=== PATIENT | male | born 1940 | race Caucasian/White ===

== ENCOUNTER → 2018-08-23 10:00 | Outpatient (CLI) | payer MEDICARE, SELFPAY ==
--- NOTE | 2018-08-23 10:00 | PROSBIL_PTH ---
PATIENT: IAM PABLO LOC: [facility] U#:[id number] AGE/SX: 84/M ROOM: RE08/23/[address]: Dr. Anil Mcwilliams MD : 1940 BED: DIS: SPEC #: [id number] RECD: 08/23/18 15:48 STATUS: IGLESIA ARIEL #: [id number] KIRIT: 08/23/18 10:[address]: Anil Mcwilliams DEPT: SURGICAL PATHOLOGY RECD BY: Byron Addison Tissues: A - PROSTATE RIGHT B - PROSTATE RIGHT C - PROSTATE RIGHT D - PROSTATE LEFT E - PROSTATE LEFT F - PROSTATE LEFT Procedures: PROSTATE BX HEADER OPERATION: Prostate biopsy PRE-OP DIAGNOSIS: Elevated PSA TISSUE SUBMITTED: A - Right apex, B - Right mid, C - Right base, D - Left apex, E - Left mid, F - Left base MICROSCOPIC DIAGNOSIS A. Right prostate, apex, core biopsy: Prostatic tissue, negative for malignancy. Focal mild chronic inflammation. B. Right prostate, mid, core biopsy: Prostatic tissue, negative for malignancy. C. Right prostate, base, core biopsy: Prostatic tissue, negative for malignancy. D. Left prostate, apex, core biopsy: Prostatic stromal tissue, negative for malignancy. E. Left prostate, mid, core biopsy: Prostatic tissue, negative for malignancy. Focal mild chronic inflammation. F. Left prostate, base, core biopsy: Prostatic tissue, negative for malignancy. Focal mild chronic inflammation. SJ:nakita 08/25/18 MICROSCOPIC DESCRIPTION Slides are reviewed. GROSS DESCRIPTION A - Received is one container designated prostate, right apex. The specimen consists of two elongated fragments of light trevizo-white soft tissue each measuring 1 cm in length and 0.1 cm in diameter. The specimen is totally submitted in one cassette. B - Received is one container designated prostate, right mid. The specimen consists of two elongated fragments of light trevizo-white soft tissue measuring 1 and 1.5 cm in length and 0.1 cm in diameter. The specimen is totally submitted in one cassette. C - Received is one container designated prostate, right base. The specimen consists of two elongated fragments of light trevizo-white soft tissue measuring 1.5 cm in length and 0.1 cm in diameter. The specimen is totally submitted in one cassette. D - Received is one container designated prostate, left apex. The specimen consists of one elongated fragment of light trevizo-white soft tissue measuring 0.5 cm in length and 0.1 cm in diameter. The specimen is totally submitted in one cassette. E - Received is one container designated prostate, left mid. The specimen consists of two elongated fragments of light trevizo-white soft tissue measuring 0.5 and 1 cm in length and 0.1 cm in diameter. The specimen is totally submitted in one cassette. F - Received is one container designated prostate, left base. The specimen consists of two elongated fragments of light trevizo-white soft tissue each measuring 1.5 cm in length and 0.1 cm in diameter. The specimen is totally submitted in one cassette. / SJ:rg 08/24/18 TC:3 CPT: G0146
== END ==
PROVIDERS: Referring Provider Urology; Visit Provider Urology
DX: N41.9 Inflammatory disease of prostate, unspecified (principal)
CPT/HCPCS: 88305; G0416

== ENCOUNTER → 2019-03-21 | Outpatient (CLI) | payer MEDICARE, SELFPAY | END | disposition home or self-care (01) | PROVIDERS: Referring Provider Nurse Practitioner Adult Health; Visit Provider Nurse Practitioner Adult Health | DX: R97.20 Elevated prostate specific antigen [PSA] (principal) | CPT/HCPCS: 36415; 84153 ==

== ENCOUNTER 2022-10-01 15:00 | Observation (INO) | payer MEDICARE, SELFPAY ==
[2022-10-01] VITALS (11 sets, daily range): BP systolic 138–168; BP diastolic 67–99; PULSE 65–82; RESP 16–18; TEMP 36.3–37.1; O2SAT 94–98; BMI 16.9; BMI 16.8
[2022-10-01] MEDS: Lactated Ringers 1,000 ML 15 ML IV (11:51)
--- NOTE | 2022-10-01 13:15 | BLB_PTH ---
PATIENT: IAM PABLO LOC: MS3 U#:[id number] AGE/SX: 82/M ROOM: LA321 RE10/01/[address]: Dr. Anil Mcwilliams MD : 1940 BED: 1 DIS: 10/02/2022 SPEC #: [id number] RECD: 10/01/22 16:36 STATUS: IGLESIA GEORGE #: [id number] KIRIT: 10/01/22 13:[address]: Anil Mcwilliams DEPT: SURGICAL PATHOLOGY RECD BY: Rafi Barnes ENTERED: 10/02/22 10:25 SP TYPE: TURB OTHR DR: Dr. 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 Fragments of stone (gross only). See cancer summary in the comment section. SJ:nakita 10/03/2022 COMMENT BLADDER CANCER (TUR) SUMMARY Procedure: Transurethral resection of bladder tumor (TURBT) Tumor site: Not specified Histologic type: Papillary urothelial carcinoma, invasive with extensive glandular differentiation. Associated epithelial lesions: None identified Histologic grade for urothelial carcinoma: High-grade (3/3) Tumor configuration: Papillary and invasive Muscularis propria presence: Muscularis propria (detrusor muscle) is present and involved by tumor. Lymphvascular invasion: Not identified Tumor extension: Tumor invades the muscularis propria (detrusor muscle). Additional pathologic findings: Chronic inflammation. - Bladder stones (gross only). The above summary is in compliance with [employer] [place] [employer] (CAP) Cancer Protocols Checklist and [place] [employer] Committee on Cancer (AJCC), Staging Manual, 8th Ed. MICROSCOPIC DESCRIPTION Slides are reviewed. GROSS DESCRIPTION Received in fixative is one container labeled with the patient's name and designated bladder tumor and bladder stones. The specimen consists of multiple irregular fragments of trevizo-brown soft tissue that in aggregate measure 5 x 3 x 0.3 cm. Also present in the container are multiple fragments of brown irregular stones measuring in aggregate 2.5 x 2 x 0.5 cm. The entire soft tissue is submitted in two cassettes. The stones are for gross identification only. / SJ:nakita 10/02/2022 TC:0 CPT: 54688
[2022-10-01] MEDS: Cefazolin 2 GM in 0.9% Normal Saline 100 ML IV (13:42)
--- NOTE | 2022-10-01 13:51 | PCM.HP.STD ---
HPI - General General Date of Service: 10/01/22 Chief Complaint: Bladder tumor and bladder stones HPI Narrative IAM PABLO, is a 82 M who presents removal of a bladder tumor and removal bladder stones PFSH Medical History Anxiety Bladder disease Cancer Depression Loss of hearing Non-smoker Prostate disease Wears dentures Wears glasses Home Medications lorazepam 1 mg tablet 1 mg PO DAILY 09/30/22 [History Last Taken Unknown] sertraline 50 mg tablet 50 mg PO DAILY 09/30/22 [History Last Taken Unknown] finasteride 5 mg tablet (Proscar) 5 mg PO DAILY #30 tabs 10/01/22 [Rx Last Taken Unknown] tamsulosin 0.4 mg capsule (Flomax) 0.4 mg PO QHS #30 caps 10/01/22 [Rx Last Taken Unknown] Allergy/AdvReac Type Severity Reaction Status Date / Time No Known Allergies Allergy Verified 10/01/22 11:47 Surgical History No history of previous surgery Social History Smoking Status: Never smoker Vital Signs Vital Signs Vital Signs: 10/01/22 11:29 10/01/22 11:48 10/01/22 11:48 Temperature 98.8 F Temperature Source Temporal Pulse Rate 68 Respiratory Rate 16 Respiratory Pattern Normal Normal Blood Pressure 146/70 H Blood Pressure Mean 95 Blood Pressure Source Monitor Blood Pressure Position Semi-Fowlers Blood Pressure Location Right Arm Pulse Ox 97 Oxygen Delivery Method Room Air Weight Weight: 52 kg Body Mass Index (BMI) 16.9
--- NOTE | 2022-10-01 13:52 | DCINST_ITS ---
Discharge Instructions Diet Discharge Diet: No restrictions, Light diet - advance as tolerated and Soft diet Activity Discharge Activity: Return to Normal Activity Dressing / Incision Call your doctor if your incision/area has: Sudden Increased Bleeding Follow Up Care Please Follow Up With: Anil Mcwilliams MD When: call for appt. Test Results: Test results from this visit will be discussed in further detail at your follow- up appointment, if applicable. Discharge Plan Admission Primary Reason for Your Visit: resection of bladder tumor and remove stones Attending Provider: Anil Mcwilliams Primary Care Provider: Zach Barnhart Discharge Orders/Prescriptions Prescriptions: New tamsulosin [Flomax] 0.4 mg capsule 0.4 mg PO QHS Qty: 30 5RF finasteride [Proscar] 5 mg tablet 5 mg PO DAILY Qty: 30 5RF Continued lorazepam 1 mg tablet 1 mg PO DAILY Label Comments: TAKE 1/2 TO 1 TABLET BY MOUTH AT BEDTIME NEEDED FOR SLEEP sertraline 50 mg tablet 50 mg PO DAILY Label Comments: TAKE ONE TABLET BY MOUTH TWICE DAILY Referrals / Follow Up: Anil Mcwilliams MD [Med Staff - Active Staff] - Zach Barnhart MD [Primary Care Provider] - Disposition Disposition (needs filled in before D/C Order can be placed): Home, Self Care
[2022-10-01] MEDS: Lactated Ringers 1,000 ML 75 ML IV ×2 (13:55→15:14)
--- NOTE | 2022-10-01 14:56 | OP.PCM_ITS ---
Report of Operation Date of Procedure: 10/01/22 Pre-Operative Diagnosis: Bladder cancer and large bladder stones very large pro state Post-Operative Diagnosis: Same Surgery/Procedure Performed:: Transurethral resection of bladder cancer large resection involving the posterior wall the bladder and cystolitholapaxy of large bladder stones Description of Surgical Findings:: This is an 82-year-old male who I saw in the office for recurrent gross hematuria on cystoscopy was found to have 3 major findings 1 is as a very large prostate measuring 300 g in size extremely large. At this point I recommended no surgical intervention for such a large prostate it would be quite difficult to intervene and would recommend medical therapy since he is not taking finasteride or Flomax to start off the shrink the prostate. I did prescribe finasteride but he still has not taken it in his family says he wants to try something natural quotation [place]. Again I recommended he take finasteride and Flomax to help with his very large prostate but today we will take him to surgery he has multiple tumors in the posterior aspect of the bladder and around the bladder neck and also has multiple large stones at work and a removed from the bladder as well I told him I would not do surgery in his prostate until we optimize him medically because of such a large prostate would be very difficult to complete resection of any meaningful fashion. 82-year-old male taken back to the operating room at a smooth induction of general anesthesia he was placed in dorsolithotomy position. The penis and testicles were prepped and draped in usual sterile fashion. Went to the bladder with a 26 [place]ian continuous-flow resectoscope the entire length of the urethra from the penis to the sphincter was intact and no strictures or abnormalities the sphincter was intact he did have a very large prostate significant large bilateral lobes with obstruction and a small median lobe inside the bladder there was multiple tumors papillary tumors in the posterior aspect of the bladder covered a very large area I switched over the resectoscope and resected this first there is also some tumors in the bladder neck at the be resected these were also resected. I then used the laser thousand laser and there is multiple stones a large stones in the base of the bladder and these were all lasered little tiny pieces and flushed out I then had to cauterize extensively around the bladder neck and around the posterior bladder still some slow oozing and constant oozing especially from the bladder neck so we placed a 20 Lithuanian catheter and will keep in the hospital for observation because of the risk of bleeding. Surgeon: Anil Mcwilliams Type of Anesthesia: General Drains: 20 fr hutchins Admit VTE Documentation VTE Present on Admission: No VTE Mechan Device Prophylaxis: SCD's
--- NOTE | 2022-10-01 19:28 | SUR.PHASEII ---
catheter flushed with 50cc ns. several small clots evacuated.
[2022-10-01] MEDS: 0.9% Normal Saline 1,000 ML 125 ML IV (20:29)
[2022-10-01] MEDS: Ciprofloxacin 400 MG/200 ML BAG 200 MG IV (21:34)
[2022-10-01] MEDS: Docusate Sodium 100 MG Capsule 200 MG PO (21:34)
[2022-10-02 03:54] VITALS: BP 125/77; PULSE 66; RESP 16; TEMP 36.8; O2SAT 96
[2022-10-02] MEDS: 0.9% Normal Saline 1,000 ML 125 ML IV (04:25)
[2022-10-02 08:44] VITALS: BP 140/86; PULSE 66; RESP 16; TEMP 36.9; O2SAT 95
--- NOTE | 2022-10-02 09:32 | PCM.PN.GU ---
Subjective Subjective home with hutchins. resume all meds rx for proscar, flomax, and cipro sent to pharmacy Objective Data Objective Data Vital Signs: Vital Signs Temp Pulse Resp BP Pulse Ox O2 Del Method 98.5 F 66 16 140/86 H 95 Room Air 10/02/22 08:44 10/02/22 08:44 10/02/22 08:44 10/02/22 08:44 10/02/22 08:44 10/02/22 08:44 Oxygen Delivery Method Room Air Weight: 51.8 kg Body Mass Index (BMI) 16.8 Intake & Output: Intake and Output for Last 24 Hours 09/30/22 10/01/22 10/02/22 23:59 23:59 23:59 Intake Total 2934.17 / 2934.17 831.25 / 831.25 Output Total 400 / 1100 1200 / 1200 Balance 2534.17 / 1834.17 -368.75 / -368.75
--- NOTE | 2022-10-02 09:33 | PCM.DC ---
Discharge Instructions Diet Discharge Diet: No restrictions, Light diet - advance as tolerated and Soft diet Dressing / Incision Call your doctor if your incision/area has: Sudden Increased Bleeding Catheter: Hutchins to leg bag and Hutchins to large bag Drain: [place] Additional Dressing/Incision Instructions:: hutchins care teaching Follow Up Care Please Follow Up With: Anil Mcwilliams MD Test Results: Test results from this visit will be discussed in further detail at your follow-up appointment, if applicable. Discharge Plan Admission Admit Date/Time: 10/01/22 15:00 Primary Reason for Your Visit: resection of bladder tumor and remove stones Attending Provider: Anil Mcwilliams Primary Care Provider: Zach Barnhart Discharge Orders/Prescriptions Prescriptions: New tamsulosin [Flomax] 0.4 mg capsule 0.4 mg PO QHS Qty: 30 5RF finasteride [Proscar] 5 mg tablet 5 mg PO DAILY Qty: 30 5RF ciprofloxacin HCl [Cipro] 500 mg tablet 500 mg PO BID Qty: 14 0RF Continued lorazepam 1 mg tablet 1 mg PO QHS Label Comments: TAKE 1/2 TO 1 TABLET BY MOUTH AT BEDTIME NEEDED FOR SLEEP sertraline 50 mg tablet 50 mg PO BID Label Comments: TAKE ONE TABLET BY MOUTH TWICE DAILY Referrals / Follow Up: Anil Mcwilliams MD [Med Staff - Active Staff] - Zach Barnhart MD [Primary Care Provider] -
[2022-10-02 11:38] VITALS: BP 127/83; PULSE 75; RESP 16; TEMP 36.6; O2SAT 96
== END 2022-10-02 11:43 | disposition home or self-care (01) ==
LOC: MS3 10-02 08:07
PROVIDERS: Admitting Provider Urology; PCP Family Medicine; Referring Provider Urology; Visit Provider Urology
PROC: 0TBB8ZZ Excision of Bladder, Via Natural or Artificial Opening Endoscopic (ICD-10-PCS; CPT 52235; principal; 2022-10-01 13:05)
PROC: (CPT 52235; 2022-10-01 13:05)
DX: C67.4 Malignant neoplasm of posterior wall of bladder (principal); N21.0 Calculus in bladder; F41.9 Anxiety disorder, unspecified; F32.A Depression, unspecified; Z79.899 Other long term (current) drug therapy; H91.90 Unspecified hearing loss, unspecified ear; N42.9 Disorder of prostate, unspecified; I44.4 Left anterior fascicular block
CPT/HCPCS: 52235; 00912; 52318; 88307; 93005; 96361; 96365; 99218; J7030; J7120; G0378; J0744; J2405

== ENCOUNTER → 2022-10-14 | Outpatient (CLI) | payer MEDICARE, SELFPAY ==
--- NOTE | 2022-10-14 18:50 | CT_ITS ---
INDICATION: Malignant neoplasm of the bladder. EXAMINATION: CT ABDOMEN AND PELVIS WITH CONTRAST - CT Abdomen And Pelvis W/ Contrast Injection TECHNIQUE: Helically acquired images were obtained of the abdomen and pelvis following IV contrast. A radiation dose optimization technique was used for this scan. IV Contrast dosage and agent: 100 mL of Isovue 370 Oral contrast: With COMPARISON: None. FINDINGS: LOWER CHEST: No slight granulomata at the lung bases. There is no soft tissue mass. No cardiomegaly or pericardial effusion. LIVER: Liver is normal in size and contour. There are multiple hypoechoic foci largest in segment 7 is best seen on image 22. Question hemangioma. Others may represent small cysts. There is mild intrahepatic ductal dilatation also noted. GALLBLADDER AND BILIARY TREE: No calcified gallstones. No gallbladder distension or wall edema. No extrahepatic biliary ductal dilation. PANCREAS: No focal cystic or solid mass. SPLEEN: Normal size without focal cystic or solid mass. ADRENAL GLANDS: No nodules. KIDNEYS AND URETERS: There are multiple right renal cysts. The largest, in the upper pole, measures 1.8 cm. There is nonobstructing renal calculi. The largest in the mid renal calyx measures 4 mm. Hydronephrosis and ureterectasis to the urinary bladder without filling defect. The left kidney normal size and contour. Multiple renal cysts. The largest, in the mid kidney measures 3.7 cm. There are nonobstructing renal calculi. The largest in the lower pole measures 1.2 cm. There is hydronephrosis and ureterectasis of the urinary bladder without filling defect. PERITONEUM: No ascites or free air. No other fluid collection. BOWEL: Normal stomach. Normal small intestine. There is descending and sigmoid diverticulosis without acute inflammatory change. The colon is otherwise unremarkable. The appendix is not visualized. LYMPH NODES: No enlarged mesenteric or retroperitoneal lymph nodes. VESSELS: Mild atherosclerotic changes of the abdominal aorta and iliac arteries without aneurysm or dissection. Normal IVC. URINARY BLADDER: Unremarkable wall thickening of the urinary bladder. Bladder calculi. REPRODUCTIVE ORGANS: The prostate is markedly enlarged and invaginates into the asymmetry of the urinary bladder. ABDOMINAL WALL: No discrete abdominal or pelvic wall hernia. BONES: Degenerative changes of the lumbar spine. There is no lytic or blastic lesions. CT/Abdomen/Pelvis W IV Cont ONLY IMPRESSION: 1. Markedly enlarged prostate. There is associated marked bladder wall thickening and bladder calculi. 2. Bilateral hydronephrosis and ureterectasis secondary to probable obstruction at the UVJs. 3. Multiple bilateral nonobstructing renal calculi. 4. Multiple bilateral renal cysts. 5. Question hemangioma in segment 7 of the liver. There are small hepatic cysts also noted. 6. Diverticulosis without acute inflammatory change. Electronically Signed: Higinio Urbina DO at 23:58 EST Reading Location ID and State: [address] [place] [address] Tel [phone], Service support ,
[2022-10-14 19:26] LABS: CREATININE FINGERSTICK 1.4 mg/dL (0.70-1.30)
== END | disposition home or self-care (01) ==
LOC: CT 18:52
PROVIDERS: PCP Family Medicine; Visit Provider Urology
DX: N13.2 Hydronephrosis with renal and ureteral calculous obstruction (principal); C67.9 Malignant neoplasm of bladder, unspecified; N28.1 Cyst of kidney, acquired; R93.41 Abnormal radiologic findings on diagnostic imaging of renal pelvis, ureter, or bladder; K76.89 Other specified diseases of liver; K57.90 Diverticulosis of intestine, part unspecified, without perforation or abscess without bleeding
CPT/HCPCS: 74177; Q9967

== ENCOUNTER 2023-02-25 09:15 | Inpatient (IN) | payer MEDICARE, SELFPAY ==
[2023-02-25] VITALS (11 sets, daily range): BP systolic 111–157; BP diastolic 74–91; PULSE 73–87; RESP 16–18; TEMP 36.4–37.1; O2SAT 96–100; BMI 17.9; BMI 18.0
--- NOTE | 2023-02-25 | IMM_PTH ---
PATIENT: IAM PABLO LOC: MS3 U#:[id number] AGE/SX: 82/M ROOM: NM313 RE02/25/[address]: Dr. Anil Mcwilliams MD : 1940 BED: 1 DIS: 02/26/2023 SPEC #: [id number] RECD: 02/27/23 13:46 STATUS: ILGESIA REMargoth #: [id number] KIRIT: 02/25/23 00:[address]: Anil Mcwilliams DEPT: IMMUNOHISTOCHEMISTRY RECD BY: Qiana Holloway ENTERED: 02/27/23 13:49 SP TYPE: IMMUNO OTHR DR: Dr. Zach Barnhart MD Tissues: C - Urinary bladder, NOS Procedures: SMA (add) BCL-2 (add) CD10 (add) CK20 (add) CK7 (add) KI-67 (add) P53 (add) Vimentin (add) 34BE12 (add) Pankeratin (initial) PHYSICIAN & [address] [address] SPECIMEN INFORMATION: Tissue Source: C ? 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 Localization is made via biotin free immunoperoxidase method. Appropriate controls are performed and reacted as expected. Results on target cell population are indicated in the following table: RESULTS: ANTIBODY / CLONE RESULT Block C2 AE1-3 (AE1/AE3/PCK26) positive CK7 (OV-TL12/30) negative CK20 (KS20.8) positive, dim CD10 (56C6) positive, focal BCL-2 (bcl-2/100/D5) negative Vimentin (V9) positive 34BE12 (34BE12) positive Actin (1A4) negative P53 (DO-7) positive, missense pattern Ki-67 (30-9) positive, 65% These tests were developed and their performance characteristics determined by [facility]. They may not have been cleared or approved by the U.S. Food and Drug Administration. The FDA has determined that such clearance or approval is not necessary. The above immunohistochemical/dualISH markers are ordered and reviewed by the Pathologist. INTERPRETATION: Bladder tissue, partial resection: Consistent with urothelial carcinoma. AM:nakita 03/04/2023
--- NOTE | 2023-02-25 07:17 | EKG12_ITS ---
Test Reason : PRE OP Blood Pressure : / mmHG Vent. Rate : 078 BPM Atrial Rate : 078 BPM P-R Int : 156 ms QRS Dur : 108 ms QT Int : 396 ms P-R-T Axes : 042 -63 010 degrees QTc Int : 451 ms Normal sinus rhythm Left anterior fascicular block Abnormal ECG Confirmed by JIE PUGA, CYNTHIA ([id number]), rewrite editor BREANNA SCHWAB ([id number]) on 02/27/2023 1:36:47 PM Referred By: Anil Mcwilliams Confirmed By:CYNTHIA CERON MD
[2023-02-25 07:41] LABS: Hematocrit 33.3 % (40-54); Hemoglobin 11.3 g/dL (13.0-16.5); Mean Corp Hgb Conc 33.9 g/dL (32-36); Mean Corpuscular Volume 88.3 fL (80-94); Mean Platelet Vol. 9.2 fl (6.2-12.0); Platelet Count 201 K/mm3 (150-450); RBC Distribution Width CV 14.2 % (11.6-14.6); RBC Distribution Width SD 45.7 fl (35.1-43.9); Red Blood Count 3.77 M/mm3 (4.6-6.2); White Blood Count 7.4 K/mm3 (4.4-11.0)
[2023-02-25] MEDS: Lactated Ringers 1,000 ML 15 ML IV ×2 (08:00→11:31)
[2023-02-25 08:05] LABS: ALB/GLOB Ratio 0.7 RATIO (0.9-2.4); AST(SGOT) 81 U/L (15-37); Alanine Aminotransfer ALT/SGPT 52 U/L (16-61); Albumin, Serum 2.6 g/dL (3.2-5.0); Alkaline Phosphatase 91 U/L (45-117); Anion Gap 5 (5-15); BUN 30 mg/dL (7-18); BUN/Creat Ratio 26.5 RATIO (10-20); Calcium,Total 8.3 mg/dL (8.5-10.1); Chloride 107 mmol/L (98-107); Creatinine, Serum 1.13 mg/dL (0.70-1.30); EST Glomerular Filtration Rate 66 mL/min (>60); Est Glom Filt Rate - Afr Amer 80 mL/min (>60); Estimated Creatinine Clearance 38.53 ml/min; Globulin 3.9 g/dL (2.2-4.2); Glucose 107 mg/dL (74-106); Potassium 3.9 mmol/L (3.5-5.1); Protein, Total 6.5 g/dL (6.4-8.2); Sodium Level 139 mmol/L (136-145)
--- NOTE | 2023-02-25 08:35 | PROST_PTH ---
PATIENT: IAM PABLO LOC: MS3 U#:[id number] AGE/SX: 82/M ROOM: [facility] RE02/25/[address]: Dr. Anil Mcwilliams MD : 1940 BED: 1 DIS: 02/26/2023 SPEC #: [id number] RECD: 02/25/23 14:14 STATUS: IGLESIA GEORGE #: [id number] KIRIT: 02/25/23 08:[address]: Anil Mcwilliams DEPT: SURGICAL PATHOLOGY RECD BY: Georgia Reese ENTERED: 02/26/23 08:59 SP TYPE: PROSTATE OTHR DR: Dr. Zach Barnhart MD Tissues: A - Urinary bladder, NOS B - CALCULI C - Urinary bladder, NOS D - Prostate, NOS Procedures: Surgery Specimen Level I Surgery Specimen Level IV Surgery Specimen Level V HEADER OPERATION: Laparoscopic robotic assisted simple prostatectomy PRE-OP DIAGNOSIS: BPH with obstruction and bladder cancer TISSUE SUBMITTED: A ? Tissue from bladder, B ? Bladder stone, C ? Bladder tissue ? invasive bladder cancer, D ? Prostate tissue MICROSCOPIC DIAGNOSIS A. Tissue from bladder, biopsy: Abundant necrotic tissue. Polarizable material consistent with stones. Detached fragments of atypical urothelium consistent with urothelial carcinoma. B. Urinary bladder stone, removal: Unremarkable calculi (gross diagnosis). C. Bladder tissue with invasive carcinoma, partial resection: Invasive urothelial carcinoma. See cancer synoptic report below. D. Prostate, prostatectomy: Benign nodular hyperplasia, glandular and stromal types. Chronic inflammation. No evidence of malignancy. AM:nakita 02/27/2023 COMMENT BLADDER CANCER SUMMARY Procedure: Partial cystectomy Tumor site: Not specified Tumor size: 3.0 x 2.0 x 1.3 cm (from glass slides) Histologic grade: 3/3 Tumor extension: Tumor invades muscularis propria (detrusor muscle) Margins: Urethral: Not applicable Right ureter: Not applicable Left ureter: Not applicable Soft tissue (deep surgical margin): Focally positive. Lymphvascular invasion: Not identified Regional lymph nodes: Not identified Additional pathologic findings: Chronic inflammation and tumor necrosis and mucosal ulceration. Multifocal perineural invasion by carcinoma is identified. PATHOLOGIC STAGE: pT2b Nx Mx The above summary is in compliance with [employer] [place] (CAP) Cancer Protocols Checklist and [place] Joint Committee on Cancer (AJCC), Staging Manual, 8th Ed. Immunohistochemistry ([id number]) supports the above diagnosis. Reference is made to the patient's previous urinary bladder TUR ([id number]) in which invasive papillary urothelial carcinoma, grade 3, was identified. Case has been reviewed in consultation with Dr. Cabrera who concurs with the above diagnosis. IDC:SJ MICROSCOPIC DESCRIPTION Slides are reviewed. GROSS DESCRIPTION A - Received in fixative is one container labeled with the patient's name and designated tissue from bladder. The specimen consists of multiple irregular fragments of brownish soft tissue that in aggregate measure 1.0 x 1.0 x 0.2 cm. The specimen is totally submitted in one cassette. B - Received in fixative is one container labeled with the patient's name and designated bladder stone. The specimen consists of multiple irregular fragments of trevizo-brown stone that in aggregate measure 1.5 x 1.0 x 0.3 cm. The specimen is for gross identification only. C - Received in fixative is one container labeled with the patient's name and designated bladder tissue invasive bladder cancer. The specimen consists of a portion of trevizo, indurated tissue consistent with bladder wall measuring 4.0 x 3.0 x 1.5 cm. A focal area of mucosa is noted and appears ragged. The resection margin is inked black. The specimen is serially sectioned and submitted entirely in eight cassettes. Cassettes 1-4 also contain the mucosa. D - Received in fixative is one container labeled with the patient's name and designated prostate tissue. The specimen consists of a simple prostatectomy specimen in three piece weighing 166 gm. The specimen measures in aggregate 9.0 x 11.0 x 5.0 cm and 3.0 to 9.0 cm in greatest dimension. Sections reveal multinodular cut surfaces without any well-defined mass lesion. Professor [employer] sections are submitted in ten cassettes as follows: 1 & 2 - smallest piece, 3-6 - second largest piece and intermediate sized piece, 7-10 - largest piece. / RYAN:nakita 02/26/2023 TC:0 CPT: 99670 x2, 51597, 12703
[2023-02-25] MEDS: Cefazolin 2 GM in 0.9% Normal Saline 100 ML IV (08:55)
[2023-02-25] MEDS: Lubricating Jelly 60 GM Tube 30 GM (09:00)
--- NOTE | 2023-02-25 09:20 | HP.PCM_ITS ---
[facility] - General General Date of Service: 02/25/23 Chief Complaint: BPH with obstruction and bladder cancer HPI Narrative IAM PABLO, is a 82 M who presents for a simple prostatectomy for BPH and outlet obstruction also has a small tumor organ to cauterize the tumor in the bladder and enucleate the large prostate for obstruction. [facility] Medical History (Updated 02/25/23 @ 09:[address] Anil Mcwilliams MD) Anxiety Cancer Depression Loss of hearing Non-smoker Prostate disease Wears dentures Wears glasses Home Medications mirtazapine 15 mg disintegrating tablet 15 mg PO QHS 02/17/23 [History Last Taken 02/24/23] olanzapine 2.5 mg tablet 2.5 mg PO QHS 02/17/23 [History Last Taken 02/24/23] venlafaxine 75 mg tablet,extended release 24 hr 75 mg PO QHS 02/17/23 [History Last Taken 02/24/23] ciprofloxacin HCl 500 mg tablet (Cipro) 500 mg PO BID #20 tabs 02/25/23 [Rx Last Taken Unknown] oxycodone-acetaminophen 5 mg-325 mg tablet (Endocet) 1 tab PO Q6H PRN pain 7 days #14 tabs 02/25/23 [Rx Last Taken Unknown] Allergy/AdvReac Type Severity Reaction Status Date / Time No Known Allergies Allergy Verified 02/25/23 07:35 Surgical History (Updated 02/17/23 @ 09:26 by Natalia Cartagena) History of cystoscopy Hx of inguinal hernia repair Social History Smoking Status: Never smoker Vital Signs Vital Signs Vital Signs: 02/25/23 07:37 02/25/23 07:37 Temperature 98.7 F Temperature Source Temporal Pulse Rate 78 Respiratory Rate 18 Respiratory Pattern Normal Blood Pressure 111/74 Blood Pressure Mean 86 Blood Pressure Source Monitor Blood Pressure Position Semi-Fowlers Blood Pressure Location Left Arm Pulse Ox 96 Oxygen Delivery Method Room Air Weight Weight: 55 kg Body Mass Index (BMI) 17.9 Results Lab / Micro Data Result Diagrams: 02/25/23 07:37 02/25/23 07:37 Labs: Laboratory Results - last 24 hr 02/25/23 07:37: WBC 7.4, RBC 3.77 L, Hgb 11.3 L, Hct 33.3 L, MCV 88.3, MCH 30.0, MCHC 33.9, RDW Std Deviation 45.7 H, RDW Coeff of Burt 14.2, Plt Count 201, MPV 9.2 02/25/23 07:37: Sodium 139, Potassium 3.9, Chloride 107, Carbon Dioxide 27.0, Anion Gap 5, BUN 30 H, Creatinine 1.13, Estim Creat Clear Calc 38.53, Est GFR (MDRD) Af Amer 80, Est GFR (MDRD) Non-Af 66, BUN/Creatinine Ratio 26.5 H, Glucose 107 H, Calcium 8.3 L, Total Bilirubin 0.60, AST 81 H, ALT 52, Alkaline Phosphatase 91, Total Protein 6.5, Albumin 2.6 L, Globulin 3.9, Albumin/Globulin Ratio 0.7 L
--- NOTE | 2023-02-25 11:58 | PCM.OPRPT ---
Report of Operation Date of Procedure: 02/25/23 Pre-Operative Diagnosis: BPH with a very large prostate and outlet obstruction, history of bladder cancer Post-Operative Diagnosis: The same Surgery/Procedure Performed:: Laparoscopic robotic assisted simple prostatectomy, robotic partial cystectomy, fulguration of tumors in the bladder, cystolitholapaxy large Description of Surgical Findings:: Indication is an 82-year-old male who has a history of a very large obstructive prostate he also has a history of bladder cancer he refused to have a cystectomy for [id number] reasons we talked about his very large prostate he is having a lot of difficulties going to the bathroom too frequently not emptying his bladder he is got stones in his bladder lotta symptoms and pain so he wishes to have his prostate enucleated so he can urinate better and at the same time also try to address the tumors that were saw in the bladder. 82-year-old male taken back to the operating at the smooth induction of general anesthesia he was placed in dorsolithotomy position. The penis and testicles were prepped and draped you sterile fashion is also also the abdomen was prepped and draped. 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 Once we got in the abdomen I first reflected the colon off the bladder lateral sidewall and then we filled the bladder up with 400 cc of normal saline I then incised the midline in the bladder to open up the midline of the bladder and then inspected the bladder once inside the bladder we opened up the bladder edges using a Rupesh needle to retract both the edges of the bladder inside the bladder there was a tumor in the lateral wall the bladder this was cauterized there is a lot of bullous edema in the base of the bladder and there is a lot of stones in the base of the bladder some also necrotic and necrotic tissue this was all removed all the stones were removed. The stones in the bladder were very large greater than 2.5 cm multiple stones these were all removed one by one. Then after this was done I inspected the bladder and there was an ulcerative looking invasive cancer looking area in the base of the bladder right in front of the trigone and looking at it I thought this was amendable to a partial cystectomy so we scored circumferentially around this made sure that it was not involved in the trigone or the left and right ureteral orifice I then came through the bladder muscle and then resected this entire area from the bladder doing a partial cystectomy by removing part of the bladder and this was kept put in an Endo Catch bag immediately. We then turned our attention to the prostate he had a very large prostate I scored all the way around the prostate and then went to the muscle down to the adenoma we then developed the plane between the adenoma and the pseudocapsule plane between the adenoma and the transition zone and the peripheral zone of the prostate then we proceeded with enucleation I first enucleated the right side of the prostate down to we got to the urethral strip cut across the urethral strip and then the right-sided prostate was enucleated we then went to the left-sided prostate and enucleated the left side the prostate. Once the prostate was enucleated both lobes were put in separate bags. We then proceeded with the reconstruction of the bladder since there was a big defect in the base of the bladder I used a running 2 oh V-Loc stitch to reapproximate the edge of the bladder to I got to the midline and then I closed the midline in the bladder back up we restage in the bladder back up fortunately patient had a very copious large bladder so the reapproximation and the edges of the bladder was nice and also very had a very nice capacity bladder I do not anticipate any problems with capacity. After the reconstruction was done then it did a second layer and then we also placed Floseal in the prostatic fossa and then we closed the bladder the patient was then undocked from the robot we extracted the bladder specimen the right and left adenoma specimen and the stones through an extraction site in the midline umbilical port and then we closed the port with running 0 Vicryl stitches and then we closed all the small incisions with subcuticular stitches. We left the catheter and continuous bladder irrigation the urine was nice and clear and we had successfully completed the procedure I then spoke to the family regarding the findings of surgery. Blood loss was about 200 cc. Surgeon: Anil Mcwilliams Type of Anesthesia: General Drains: [address] h[address]ins Estimated Blood Loss (mL): 200 Admit VTE Documentation VTE Present on Admission: No VTE Mechan Device Prophylaxis: SCD's VTE Pharm Prophylaxis ordered?: No
--- NOTE | 2023-02-25 12:04 | DCINST_ITS ---
Discharge Instructions Diet Discharge Diet: No restrictions, Light diet - advance as tolerated and Soft diet Activity Discharge Activity: Return to Normal Activity Dressing / Incision Call your doctor if you observe: Fever of 101 or Higher Cleanse incision/area with: Soap & Water Follow Up Care Please Follow Up With: Anil Mcwilliams MD When: next to remove hutchins Test Results: Test results from this visit will be discussed in further detail at your follow- up appointment, if applicable. Discharge Plan Admission Primary Reason for Your Visit: robotic simple prostatectomy and cauterization of small tumor Attending Provider: Anil Mcwilliams Primary Care Provider: Zach Barnhart Discharge Orders/Prescriptions Prescriptions: New ciprofloxacin HCl [Cipro] 500 mg tablet 500 mg PO BID Qty: 20 0RF oxycodone-acetaminophen [Endocet] 5-325 mg tablet 1 tab PO Q6H PRN (Reason: pain) 7 Days Qty: 14 0RF Continued olanzapine 2.5 mg Tablet 2.5 mg PO QHS mirtazapine 15 mg Tablet,Disintegrating 15 mg PO QHS venlafaxine 75 mg Tablet Extended Release 24hr 75 mg PO QHS Discontinued tamsulosin [Flomax] 0.4 mg capsule 0.4 mg PO QHS Qty: 30 5RF finasteride [Proscar] 5 mg tablet 5 mg PO DAILY Qty: 30 5RF Referrals / Follow Up: Anil Mcwilliams MD [Med Staff - Active Staff] - Zach Barnhart MD [Primary Care Provider] - Disposition Disposition (needs filled in before D/C Order can be placed): Home, Self Care
[2023-02-25] MEDS: 0.9% Normal Saline 1,000 ML 125 ML IV (16:38)
[2023-02-25] MEDS: Venlafaxine XR 75 MG Capsule PO (21:28)
[2023-02-25] MEDS: OLANZapine 2.5 MG Tablet PO (21:28)
[2023-02-25] MEDS: Docusate Sodium 100 MG Capsule 200 MG PO (21:28)
[2023-02-25] MEDS: Mirtazapine 15 MG Tablet PO (21:28)
[2023-02-25] MEDS: Ciprofloxacin 400 MG/200 ML BAG 200 MG IV (21:35)
[2023-02-26] MEDS: 0.9% Normal Saline 1,000 ML 125 ML IV (00:38)
[2023-02-26 01:52] VITALS: BMI 18.0
[2023-02-26 05:49] VITALS: BMI 18.0
[2023-02-26 05:52] VITALS: BP 140/87; PULSE 84; RESP 16; TEMP 36.6; O2SAT 95
--- NOTE | 2023-02-26 07:04 | PCM.PN.GU ---
Subjective Subjective Status post simple prostatectomy urine is clear off irrigation he can go home today with a catheter and he has an appointment with me next to remove the catheter. Objective Data Objective Data Vital Signs: Vital Signs Temp Pulse Resp BP Pulse Ox O2 Del Method O2 Flow Rate 97.9 F 84 16 140/87 H 95 Room Air 2 02/26/23 05:52 02/26/23 05:52 02/26/23 05:52 02/26/23 05:52 02/26/23 05:52 02/26/23 05:52 02/25/23 13:52 Oxygen Flow Rate (L/min) 2 Oxygen Delivery Method Room Air Weight: 55 kg Body Mass Index (BMI) 17.9 Intake & Output: Intake and Output for Last 24 Hours 02/24/23 02/25/23 02/26/23 23:59 23:59 23:59 Intake Total 1560 / 1560 1000 / 1000 Output Total 1725 / 1725 400 / 400 Balance -165 / -165 600 / 600 Lab / Micro Data Result Diagrams: 02/25/23 07:37 02/25/23 07:37 Labs: Laboratory Results - last 24 hr 02/25/23 07:37: WBC 7.4, RBC 3.77 L, Hgb 11.3 L, Hct 33.3 L, MCV 88.3, MCH 30.0, MCHC 33.9, RDW Std Deviation 45.7 H, RDW Coeff of Burt 14.2, Plt Count 201, MPV 9.2 02/25/23 07:37: Sodium 139, Potassium 3.9, Chloride 107, Carbon Dioxide 27.0, Anion Gap 5, BUN 30 H, Creatinine 1.13, Estim Creat Clear Calc 38.53, Est GFR (MDRD) Af Amer 80, Est GFR (MDRD) Non-Af 66, BUN/Creatinine Ratio 26.5 H, Glucose 107 H, Calcium 8.3 L, Total Bilirubin 0.60, AST 81 H, ALT 52, Alkaline Phosphatase 91, Total Protein 6.5, Albumin 2.6 L, Globulin 3.9, Albumin/Globulin Ratio 0.7 L
[2023-02-26 08:05] VITALS: O2SAT 95
[2023-02-26 09:22] VITALS: BP 130/80; PULSE 90; RESP 16; TEMP 36.8; O2SAT 95
--- NOTE | 2023-02-26 09:56 | CASEMGMT ---
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.? Pt very SUN'AQ and having difficulty hearing ELIAN Elias voices understanding and consents to?assessment?at this time and the following info obtained from her.? Pt resting in bed in no distress at this time.? Care providers, pharmacy, and demographics verified/updated at this time. PCP: Dr Barnhart Specialists: Dr Mcwilliams-urologist Preferred Pharmacy: [facility] Retail Insurance: [facility] Prescription Benefit:?Yes Living Will/HPOA:?Pt does not currently have LW/HCPOA. LNOK: . 5 children. 2 dtrs are Jada and Cindi Living Arrangements: Lives w/ in 2-story home w/no steps to enter. [employer]. Dtr, Cindi, lives next door. Pt is indep w/ADL's and IADL's. Dtr, Jada, does med mgnt/sets up pill containers weekly. Transportation:? [employer] DME: Jada luque pt uses no DME. HHC/SNF: No hx of either. No needs identified. Dtr wishes for pt to return home and states has no concerns with him going home at time of discharge.? CM?to follow for any discharge planning/needs.? Dtr voices no further concerns/needs at this time.? PLAN:??Home w/family support and discharge plans in place. Fermin ESTRADAN?RN?CM
== END 2023-02-26 10:13 | disposition home or self-care (01) | DRG 654 ==
LOC: SDC 12:06 → MS3 12:06
PROVIDERS: Admitting Provider Urology; PCP Family Medicine; Referring Provider Urology; Visit Provider Urology
PROC: 0VT04ZZ Resection of Prostate, Percutaneous Endoscopic Approach (ICD-10-PCS; CPT 55867; principal; 2023-02-25 08:15)
DX: C67.9 Malignant neoplasm of bladder, unspecified (principal); N13.8 Other obstructive and reflux uropathy; N32.0 Bladder-neck obstruction; N40.1 Benign prostatic hyperplasia with lower urinary tract symptoms
CPT/HCPCS: 80053; 85027; 88300; 88304; 88305; 88307; 88309; 88341; 88342; 93005; 94668; 99252; J7030; J7120; G0463; J0744; J2405

== ENCOUNTER 2023-04-21 15:42 | Outpatient (CLI) | payer MEDICARE, SELFPAY ==
[2023-04-21 16:19] LABS: Hematocrit 36.2 % (40-54); Hemoglobin 11.6 g/dL (13.0-16.5); Mean Corpuscular Hgb 29.2 pg (27.0-32.0); Mean Corpuscular Volume 91.2 fL (80-94); Mean Platelet Vol. 9.5 fl (6.2-12.0); Platelet Count 292 K/mm3 (150-450); RBC Distribution Width CV 14.4 % (11.6-14.6); RBC Distribution Width SD 48.1 fl (35.1-43.9); Red Blood Count 3.97 M/mm3 (4.6-6.2); White Blood Count 7.8 K/mm3 (4.4-11.0)
[2023-04-21 16:44] LABS: Anion Gap 4 (5-15); BUN 23 mg/dL (7-18); BUN/Creat Ratio 17.4 RATIO (10-20); Chloride 110 mmol/L (98-107); Creatinine, Serum 1.32 mg/dL (0.70-1.30); EST Glomerular Filtration Rate 55 mL/min (>60); Est Glom Filt Rate - Afr Amer 67 mL/min (>60); Glucose 105 mg/dL (74-106); Potassium 3.5 mmol/L (3.5-5.1); Sodium Level 142 mmol/L (136-145)
== END 2023-04-21 23:59 | disposition home or self-care (01) ==
LOC: LAB 15:49
PROVIDERS: PCP Family Medicine; Referring Provider Urology; Visit Provider Urology
DX: N40.1 Benign prostatic hyperplasia with lower urinary tract symptoms (principal); C67.4 Malignant neoplasm of posterior wall of bladder
CPT/HCPCS: 36415; 80048; 85027